=== PATIENT | female | born 1995 | race Caucasian/White ===

== ENCOUNTER 2018-05-06 14:24 | Emergency (ER) | payer SELFPAY ==
[~2018-05-06] VITALS: Ht 157.5 cm; Wt 72.6 kg
[~2018-05-06 14:24] MED LIST: AMOCLA400S PO; CODACEE120 PO; ONDA4 PO; POLTRIOPSO OS; [UNRECOGNIZED DRUG - OTHER]
[2018-05-06 15:21] LABS: BASOPHILS ABSOLUTE AUTO 0.05 K/mm3 (0.00-0.23); BASOPHILS PERCENT AUTO 1 % (0-2); EOSINOPHILS ABSOLUTE AUTO 0.32 K/mm3 (0.00-0.68); EOSINOPHILS PERCENT AUTO 3 % (0-6); Hematocrit 40.9 % (33.0-51.0); Hemoglobin 13.8 g/dL (11.5-16.0); IMMATURE GRAN ABSOLUTE AUTO 0.04 K/mm3 (0.00-0.10); IMMATURE GRAN PERCENT AUTO 0 % (0-1); LYMPHOCYTES ABSOLUTE AUTO 0.86 K/mm3 (0.84-5.20); LYMPHOCYTES PERCENT AUTO 9 % (21-46); MONOCYTES ABSOLUTE AUTO 0.84 K/mm3 (0.16-1.47); MONOCYTES PERCENT AUTO 8 % (4-13); Mean Corpuscular HGB 28.6 pg (26.0-34.0); Mean Corpuscular HGB Conc 33.7 g/dL (31.5-36.5); Mean Corpuscular Volume 85 fL (80-100); Mean Platelet Volume 10.1 fL (9.1-12.4); NEUTROPHILS ABSOLUTE AUTO 8.02 K/mm3 (1.96-9.15); NEUTROPHILS PERCENT AUTO 79 % (41-73); Platelet Count 225 K/mm3 (150-400); RDW Coefficient Variation 11.2 % (11.7-14.2); RDW Standard Deviation 34.7 fL (35.1-46.3); Red Blood Cell Count 4.82 M/mm3 (3.80-5.20); White Blood Cell Count 10.13 K/mm3 (4.00-11.30)
[2018-05-06 15:35] LABS: Alanine Aminotransfer (ALT/SGP 21 U/L (12-78); Albumin, Blood 3.4 g/dL (3.4-5.0); Albumin/Globulin Ratio 0.9 (0.8-1.8); Alk Phos 52 U/L (50-136); Anion Gap 11 mmol/L (6-16); Aspartate Aminotrans (AST/SGOT 14 U/L (12-37); Bilirubin, Total 0.5 mg/dL (0.1-1.0); Blood Urea Nitrogen 10 mg/dL (8-24); Bun/Creatinine Ratio 15.9 (12.0-20.0); CO2, Blood 23 mmol/L (21-32); Calcium, Blood 8.7 mg/dL (8.5-10.1); Chloride, Blood 102 mmol/L (98-108); Creatinine, Blood 0.63 mg/dL (0.40-1.00); Globulin, Blood 3.8 g/dL (2.2-4.0); Glomerular Filtration Rate >60 (60-); Glucose, Blood 108 mg/dL (70-99); Potassium, Blood 3.7 mmol/L (3.5-5.5); Sodium, Blood 136 mmol/L (136-145); Total Protein, Blood 7.2 g/dL (6.4-8.2)
[2018-05-06] MEDS ORDERED: Monodox100 MG PO (17:43)
[2018-05-06] MEDS ORDERED: Norco 5-325 Ta1 EACH PO (17:44)
== END 2018-05-06 18:06 | disposition home or self-care (01) ==
LOC: ER 14:24
PROVIDERS: Emergency Medicine
DX: L02.413 Cutaneous abscess of right upper limb (principal)
CPT/HCPCS: 10060; 36415; 80053; 83605; 85025; 86141; 93971; 96361; 96374; 96375; 99283-25; J2405; J3010; J7030

== ENCOUNTER 2020-06-18 10:40 | Inpatient (IN) | payer OTHER ==
[~2020-06-18] VITALS: Ht 157.5 cm; Wt 77.1 kg
[~2020-06-18 10:40] MED LIST changes: +Monodox100 MG PO; +Norco 5-325 Ta1 EACH PO; +Percocet 5-3251 EACH PO
[2020-06-18] MEDS ORDERED: PRENATAL TABLE1 EAC2 PO (11:44)
[2020-06-18 13:32] LABS: BASOPHILS ABSOLUTE AUTO 0.04 K/mm3 (0.00-0.23); BASOPHILS PERCENT AUTO 0 % (0-2); EOSINOPHILS ABSOLUTE AUTO 0.02 K/mm3 (0.00-0.68); EOSINOPHILS PERCENT AUTO 0 % (0-6); Hematocrit 37.2 % (33.0-51.0); Hemoglobin 12.3 g/dL (11.5-16.0); IMMATURE GRAN ABSOLUTE AUTO 0.14 K/mm3 (0.00-0.10); IMMATURE GRAN PERCENT AUTO 1 % (0-1); LYMPHOCYTES ABSOLUTE AUTO 1.12 K/mm3 (0.84-5.20); LYMPHOCYTES PERCENT AUTO 6 % (21-46); MONOCYTES ABSOLUTE AUTO 0.76 K/mm3 (0.16-1.47); MONOCYTES PERCENT AUTO 4 % (4-13); Mean Corpuscular HGB 28.7 pg (26.0-34.0); Mean Corpuscular HGB Conc 33.1 g/dL (31.5-36.5); Mean Corpuscular Volume 87 fL (80-100); Mean Platelet Volume 12.6 fL (9.1-12.4); NEUTROPHILS ABSOLUTE AUTO 15.39 K/mm3 (1.96-9.15); NEUTROPHILS PERCENT AUTO 88 % (41-73); Platelet Count 174 K/mm3 (150-400); RDW Coefficient Variation 11.9 % (11.7-14.2); RDW Standard Deviation 37.9 fL (35.1-46.3); Red Blood Cell Count 4.29 M/mm3 (3.80-5.20); White Blood Cell Count 17.47 K/mm3 (4.00-11.30)
[2020-06-18 15:51] LABS: U Amphetamine Screen Not Detected; U Barbituate Screen Not Detected; U Benzodiazapine Screen Not Detected; U Buprenorphine Screen Not Detected; U Cannabinoids Screen Not Detected; U Cocaine Screen Not Detected; U Methadone Screen Not Detected; U Methamphetamine Screen Not Detected; U Opiates Screen DETECTED; U Oxycodone Screen Not Detected; U Phencyclidine Screen Not Detected; U Propoxyphene Screen Not Detected
--- NOTE | 2020-06-18 18:56 | NUR ---
PATIENT MOANING ABOUT HOW SORE HER PERINEUM IS. STATES ITS BEEN THIS WAY SINCE DELIVERY. NO HARDNESS OR BRUISING SEEN. KENDELL MEDS GIVEN AND WILL GIVE ICE DIAPER NEXT.
--- NOTE | 2020-06-19 10:49 | NUR ---
[facility] WORKER OZIEL GUILLEN HERE TO SEE PT AND NB. PLAN TO SEND BABY HOME WITH MOM. CSD WILL FOLLOW UP AT HOME. C.O.R.E. REFERRAL SENT. PT SIGNED UP FOR HEALTHY FAMILIES. PT EMOTIONAL AND DESIRES D/C ALEKSANDER SO SHE CAN GO HOME AND TALK WITH FONatasha COHN SINCE HE IS JUST NOW FINDING OUT THAT NB WILL BE HERE AT LEAST 3 DAYS AND OF PT'S POSITIVE TOX SCREEN. PT REPORTS SHE FEELS SAFE GOING TO MEET WITH HIM. PT'S MOTHER IS WITH HER AND REPORTS HE IS SAFE, HE IS JUST VERY UPSET. PT PLANS TO DEAL WITH PATERNITY PAPERS AFTER D/C. CARD GIVEN FOR F/U OUTSIDE OF HOSPITAL AND INFORMED THEY HAVE 7 DAYS TO DO PAPERWORK. PT VERBALIZES UNDERSTANDING. PT'S MOTHER WILL BE STAYING AT THE HOSPITAL AND DOING NB CARE WHILE PT LEAVES TO GO HOME AND GET NEW CLOTHES.
--- NOTE | 2020-06-19 10:54 | NUR ---
PT STANDING IN [place] STATES SHE IS LEAVING. D/C TO BOARDER STATUS.
== END 2020-06-19 10:54 | disposition home or self-care (01) | DRG 768 ==
LOC: OBS 10:40 → BC 10:51
PROVIDERS: ADMIT Obstetrics & Gynecology
PROC: 10E0XZZ Delivery of Products of Conception, External Approach (ICD-10-PCS; principal; 2020-06-18)
PROC: 0UQK7ZZ Repair Hymen, Via Natural or Artificial Opening (ICD-10-PCS; 2020-06-18)
DX: O62.3 Precipitate labor (principal); Z37.0 Single live birth; O99.324 Drug use complicating childbirth; O69.89X0 Labor and delivery complicated by other cord complications, not applicable or unspecified; O71.89 Other specified obstetric trauma; F11.90 Opioid use, unspecified, uncomplicated; O99.814 Abnormal glucose complicating childbirth; Z3A.37 37 weeks gestation of pregnancy
CPT/HCPCS: 36415; 85025; 86850; 86900; 86901; A9270; J2590

== ENCOUNTER 2024-04-18 18:28 | Emergency (ER) | payer SELFPAY ==
[~2024-04-18] VITALS: Ht 160 cm; Wt 77.1 kg
[~2024-04-18 18:28] MED LIST changes: +PRENATAL TABLE1 EAC2 PO
[2024-04-18 18:50] VITALS: BP 185/88
== END 2024-04-18 19:50 | disposition home or self-care (01) ==
LOC: ER 18:28
DX: R60.0 Localized edema (principal); M79.671 Pain in right foot; I10 Essential (primary) hypertension; Z79.899 Other long term (current) drug therapy
CPT/HCPCS: 99283